=== PATIENT | female | born 1970 ===

== ENCOUNTER 2019-03-16 18:40 | Emergency (ER) | payer OTHER ==
[2019-03-16 19:22] VITALS: RESP 18
--- NOTE | 2019-03-16 19:45 | C.PDOC ---
History Of Present Illness 48 year old female presents complaining of suprapubic pain radiating to the back for the past 8 days. Pain is described as a poking sensation and is worse when "trying to sit on high chair at work". She states the pain makes it difficulty for her to walk on her left leg but does not have leg pain. Patient reports similar pain 2 years ago, was evaluated by multiple doctors including [facility], had transvaginal US which was positive for ovarian cyst, states the pain went away until 8 days ago. LMP was 2 months ago, prior to that she was 2 years without menstrual period. She has been taking ibuprofen 600mg every 6 hours since onset with minimal relief. Denies weakness or numbness. Time Seen by Provider: 03/16/19 19:26 Chief Complaint (Nursing): Abdominal Pain History Per: Patient History/Exam Limitations: no limitations Current Symptoms Are (Timing): Still Present Location Of Pain/Discomfort: Suprapubic Radiation Of Pain To:: Back Quality Of Discomfort: Other (Poking) Associated Symptoms: denies: Other (Weakness, Numbness) Exacerbating Factors: Other (When "trying to sit on high chair") Alleviating Factors: None Recent travel outside of the [place]: No Abnormal Vaginal Bleeding: No Past Medical History Reviewed: Historical Data, Nursing Documentation, Vital Signs Vital Signs: Last Vital Signs Temp 98.8 F 03/16/19 19:15 Pulse 70 03/16/19 19:15 Resp 18 03/16/19 19:15 BP 146/90 03/16/19 19:15 Pulse Ox 98 03/16/19 19:15 Primary Care Provider: FAMILY PROVIDER,NO - Medical History PMH: Hyperthyroidism, Hypothyroidism Denies: Arthritis (denies) Surgical History: Cholecystectomy, Family History: States: Unknown Family Hx - Social History Hx Tobacco Use: No Hx Alcohol Use: No Hx Substance Use: No - Immunization History Hx Tetanus Toxoid Vaccination: No Hx Influenza Vaccination: No Hx Pneumococcal Vaccination: No Review Of Systems Constitutional: Negative for: Fever, Chills Gastrointestinal: Positive for: Abdominal Pain (Suprapubic) Neurological: Negative for: Weakness, Numbness Physical Exam - Physical Exam Appears: Non-toxic, No Acute Distress Skin: Normal Color, Warm Head: Atraumatic, Normacephalic Eye(s): bilateral: Normal Inspection Oral Mucosa: Moist Chest: Symmetrical Cardiovascular: Rhythm Regular Respiratory: Normal Breath Sounds, No Accessory Muscle Use Gastrointestinal/Abdominal: Soft, No Tenderness Back: Other (Reproducible pain with extension, no spasm) Extremity: Normal ROM (x4) Neurological/Psych: Oriented x3, Normal Speech, Normal Motor, Normal Sensation Gait: Steady ED Course And Treatment - Laboratory Results Urine POC: Negative O2 Sat by Pulse Oximetry: 98 (Room air) Pulse Ox Interpretation: Normal - Other Rad L HIP X-Ray: Interpreted by Me (NEG) Reevaluation Time: 21:35 Reassessment Condition: Improved Medical Decision Making Medical Decision Making: Plan: UA Tylenol Decadron Tramadol Zofran Disposition Counseled Patient/Family Regarding: Studies Performed, Diagnosis, Need For Followup, Rx Given - Disposition Referrals: [facility] [Outside] [facility] [Outside] Disposition: HOME/ ROUTINE Disposition Time: 21:35 Condition: IMPROVED Additional Instructions: CONTINUAR MOTRIN 600 MG TODOS 6-8 HORAS. TOME LOS MEDICAMENTOS PRESCRITOS J[place]ON SE DIRIGE. SEGUIMIENTO DE LA CLNICA SEGN LO HECHO Prescriptions: Acetaminophen with Codeine [Tylenol with Codeine No. 3 300 mg-30 mg] 1 tab PO Q6 PRN #12 tab PRN Reason: Pain, Moderate (4-7) Cyclobenzaprine [Flexeril] 5 mg PO TID #12 tab Instructions: Radiculopathy (DC), Acute Pelvic Pain (DC) Forms: [facility] (Lithuanian), Work Excuse Print Language: AMHARIC - Clinical Impression Clinical Impression: Hip pain, Pelvic pain - Scribe Statement The provider has reviewed the documentation as recorded by the Scribnolan Barber All medical record entries made by the Scribe were at my direction and personally dictated by me. I have reviewed the chart and agree that the record accurately reflects my personal performance of the history, physical exam, medical decision making, and the department course for this patient. I have also personally directed, reviewed, and agree with the discharge instructions and disposition.
[2019-03-16 20:34] LABS: SQUAMOUS EPITHIAL 12 /hpf (0-5); URINE BACTERIA RARE (<OCC); URINE BILIRUBIN NEGATIVE (NEGATIVE); URINE BLOOD 1+ (NEGATIVE); URINE CLARITY Hazy (Clear); URINE COLOR Yellow (YELLOW); URINE GLUCOSE (UA) NORMAL (Normal); URINE LEUKOCYTE ESTERASE NEG Leu/uL (Negative); URINE PROTEIN NEGATIVE (NEGATIVE)
[2019-03-16 21:42] VITALS: BP 115/72; PULSE 63; TEMP 97.8; O2SAT 96
--- NOTE | 2019-03-17 13:24 | RAD ---
PROCEDURE: Left Hip X-ray Radiographs. HISTORY: PAIN COMPARISON: None. TECHNIQUE: 2 views obtained. FINDINGS: BONES: Bone alignment and mineralization are normal. There is no acute displaced fracture or bone destruction. JOINTS: Normal. SOFT TISSUES: Normal. OTHER FINDINGS: None. IMPRESSION: No acute displaced fracture or dislocation. Please note occult fractures cannot be excluded on plain radiographs. If there is a persistent clinical concern, an MRI of the hip may be performed for further evaluation.
== END 2019-03-16 21:42 | disposition home or self-care (01) ==
LOC: C.ER 18:40
DX: R10.2 Pelvic and perineal pain (principal); M25.552 Pain in left hip
CPT/HCPCS: 73501; 81001; 81025; 99284; J8540